=== PATIENT | male | born 1990 | race African-American/Black ===

== ENCOUNTER 2016-10-21 10:41 | Emergency (ER) | payer SELFPAY ==
[2016-10-21] MEDS ORDERED: ACETAMINOPHEN 325 MG TABLET PO ONE (10:57)
[2016-10-21] MEDS ORDERED: NORMAL SALINE 1000 ML 1,000 ML IV ONE ×2 (11:01→11:44)
--- NOTE | 2016-10-21 11:03 | ER Document Report ---
ED Medical Screen (RME) - General Chief Complaint: Bodyaches Stated Complaint: FEVER,STOMACH PAIN Mode of Arrival: Ambulatory Information source: Patient Notes: 26 y/o M presents to ED c/o generalized body aches, cough, sore throat, and intermittent fever over the last 2 weeks. Denies chest pain or sob. I have greeted and performed a rapid initial assessment of this patient. A comprehensive ED assessment and evaluation of the patient, analysis of test results and completion of the medical decision making process will be conducted by additional ED providers. TRAVEL OUTSIDE OF THE [place] IN LAST 30 DAYS: No - Related Data Allergies/Adverse Reactions: No Known Allergies Allergy (Unverified 10/21/16 10:54) Past Medical History - Social History Chew tobacco use (# tins/day): No Frequency of alcohol use: Social Drug Abuse: None Renal/ Medical History: Denies: Hx Peritoneal Dialysis Physical Exam - Vital signs Vitals: Temp Pulse Resp BP Pulse Ox 100.6 F H 134 H 18 129/86 H 97 10/21/16 10:53 10/21/16 10:53 10/21/16 10:53 10/21/16 10:53 10/21/16 10:53 - General General appearance: Alert In distress: None - Respiratory Respiratory status: No respiratory distress Breath sounds: Normal - Cardiovascular Rhythm: Regular, Tachycardia Pulses: Normal: Radial Course - Vital Signs Vital signs: Temp Pulse Resp BP Pulse Ox 100.6 F H 134 H 18 129/86 H 100 10/21/16 10:57 10/21/16 10:57 10/21/16 10:57 10/21/16 10:57 10/21/16 10:57
--- NOTE | 2016-10-21 11:44 | ER Document Report ---
ED General Pain - General Chief Complaint: Bodyaches Stated Complaint: FEVER,STOMACH PAIN Time seen by provider: 11:44 Mode of Arrival: Ambulatory Information source: Patient Notes: 26 yo male c/o being sick for several weeks with bodyaches, intermittent fevers , just not feeling right. Some stomache, sore throat, mild cough. No vomiting or diarrhea. No dysuria. No rash. No abscess. NO groin or perineal pain. NO rectal pain. No travel outside [place]. No tickbite. TRAVEL OUTSIDE OF THE [place] IN LAST 30 DAYS: No - Related Data Allergies/Adverse Reactions: No Known Allergies Allergy (Unverified 10/21/16 10:54) Past Medical History - General Information source: Patient - Social History Smoking Status: Current Every Day Smoker Chew tobacco use (# tins/day): No Frequency of alcohol use: Social Drug Abuse: None Lives with: Family Family History: Reviewed & Not Pertinent Patient has suicidal ideation: No Patient has homicidal ideation: No - Medical History Medical History: Negative Renal/ Medical History: Denies: Hx Peritoneal Dialysis Surgical Hx: Negative Review of Systems - Review of Systems Constitutional: See HPI EENT: No symptoms reported Cardiovascular: No symptoms reported Respiratory: No symptoms reported Gastrointestinal: No symptoms reported Genitourinary: No symptoms reported Male Genitourinary: No symptoms reported Musculoskeletal: No symptoms reported Skin: No symptoms reported Hematologic/Lymphatic: No symptoms reported Neurological/Psychological: No symptoms reported Physical Exam - Vital signs Vitals: Temp Pulse Resp BP Pulse Ox 100.6 F H 134 H 18 129/86 H 97 10/21/16 10:53 10/21/16 10:53 10/21/16 10:53 10/21/16 10:53 10/21/16 10:53 Interpretation: Normal - General General appearance: Appears well, Alert - HEENT Head: Normocephalic, Atraumatic Eyes: Normal Conjunctiva: Normal Pupils: PERRL Tympanic membrane: Normal Mouth/Lips: Normal Pharynx: Normal Neck: Supple. No: Lymphadenopathy - Respiratory Respiratory status: No respiratory distress Chest status: Nontender Breath sounds: Normal Chest palpation: Normal - Cardiovascular Rhythm: Regular Heart sounds: Normal auscultation Murmur: No - Abdominal Inspection: Normal Distension: No distension Bowel sounds: Normal Tenderness: Nontender. No: Tender Organomegaly: No organomegaly. No: Hepatomegaly, Splenomegaly - Back Back: Normal, Nontender. No: CVA tenderness - Extremities General upper extremity: Normal inspection, Nontender, Normal color, Normal ROM , Normal temperature General lower extremity: Normal inspection, Nontender, Normal color, Normal ROM , Normal temperature, Normal weight bearing. No: David's sign - Neurological Neuro grossly intact: Yes Cognition: Normal Orientation: AAOx4 Marjan Coma Scale Eye Opening: Spontaneous Marjan Coma Scale Verbal: Oriented [place] Coma Scale Motor: Obeys Commands [place] Coma Scale Total: 15 Speech: Normal Motor strength normal: LUE, RUE, LLE, RLE Sensory: Normal - Psychological Associated symptoms: Normal affect, Normal mood - Skin Skin Temperature: Warm Skin Moisture: Dry Skin Color: Normal Skin irregularity: negative: Rash Course - Re-evaluation Re-evalutation: 10/21/16 12:[address] george for further workup and dispo. Patient is willing to have HIV run since last testing are negative so far. He is bisexual and had receptive anal intercourse about 2 months ago and unknown if the condom was used. Most of the times he uses condoms when he has intercourse with males and females. 10/21/16 13:11 vitals are stable at this time. 10/21/16 15:49 HIV is negative, pt called back for the result. - Vital Signs Vital signs: Temp Pulse Resp BP Pulse Ox 98.2 F 97 18 144/74 H 98 10/21/16 13:11 10/21/16 13:11 10/21/16 13:11 10/21/16 13:11 10/21/16 13:11 - Laboratory Result Diagrams: 10/21/16 11:30 10/21/16 11:30 Laboratory results interpreted by me: 10/21/16 10/21/16 10/21/16 11:30 11:30 11:30 WBC 12.7 H RBC 3.88 L Hgb 12.3 L Hct 36.5 L Seg Neuts % (Manual) 35 L Abs Lymphs (Manual) 7.2 H Abs Basophils (Manual) 0.3 H VBG pH 7.43 H AST 115 H ALT 100 H Urine Ketones Urine Urobilinogen 10/21/16 11:30 WBC RBC Hgb Hct Seg Neuts % (Manual) Abs Lymphs (Manual) Abs Basophils (Manual) VBG pH AST ALT Urine Ketones TRACE H Urine Urobilinogen 4.0 H Discharge - Discharge Clinical Impression: Myalgia Fever Qualifiers: Fever type: unspecified Qualified Code(s): R50.9 - Fever, unspecified Condition: Good Disposition: HOME, SELF-CARE Instructions: Fever ([facility]), Acetaminophen, Myalagia (Muscle Pain) ([facility]) Additional Instructions: Call me back at [phone] for the rest of the test results. They should be back in 2 hours. Return to the emergency room any worsening symptoms Tylenol for any fever Please complete the patient satisfaction survey if you get one, and return it.. If you do not receive a survey, then you can go to the [facility] website, [email or web address] and place your comments about your very good care. Thank you very much. It was a pleasure being your medical provider today.
[2016-10-21 12:07] LABS: APPEARANCE,URINE CLEAR; BILIRUBIN,URINE NEGATIVE (NEGATIVE); GLUCOSE, URINE NEGATIVE (NEGATIVE); KETONES,URINE TRACE mg/dL (NEGATIVE); LEUKOCYTE ESTERASE,URINE NEGATIVE (NEGATIVE); NITRITE,URINE NEGATIVE (NEGATIVE); PROTEIN,URINE NEGATIVE (NEGATIVE); URINE SPECIFIC GRAVITY 1.018
[2016-10-21 12:08] LABS: PROTHROMBIN TIME 13.7 SEC (11.4-15.4)
[2016-10-21 12:11] LABS: HEMATOCRIT 36.5 % (37.9-51.0); HEMOGLOBIN 12.3 g/dL (13.5-17.0); HGB HCT DIFFERENCE 0.4; MEAN CORPUSCULAR HEMOGLOBIN 31.7 pg (27.0-33.4); MEAN CORPUSCULAR HGB CONC 33.7 g/dL (32.0-36.0); MEAN CORPUSCULAR VOLUME 94 fl (80-97); RED BLOOD COUNT 3.88 10^6/uL (4.35-5.55); RED CELL DISTRIBUTION WIDTH 11.8 % (11.5-14.0); WHITE BLOOD COUNT 12.7 10^3/uL (4.0-10.5)
[2016-10-21 12:15] LABS: VENOUS BLOOD BASE EXCESS 3.7 mmol/L; VENOUS BLOOD HCO3 28.6 mmol/L (20-32); VENOUS BLOOD PCO2 44.1 mmHg (35-63); VENOUS BLOOD PH 7.43 (7.30-7.42)
[2016-10-21 12:17] LABS: ALANINE AMINOTRANSFERASE 100 U/L (21-72); ALBUMIN 3.9 g/dL (3.5-5.0); ALKALINE PHOSPHATASE 72 U/L (38-126); ANION GAP 11 (5-19); ASPARTATE AMINO TRANSFERASE 115 U/L (17-59); BILIRUBIN,TOTAL 0.8 mg/dL (0.2-1.3); BLOOD UREA NITROGEN 11 mg/dL (7-20); CALCIUM 9.4 mg/dL (8.4-10.2); CARBON DIOXIDE 26 mmol/L (22-30); CHLORIDE 102 mmol/L (98-107); CREATININE RESULT 1.01 mg/dL (0.52-1.25); GLUCOSE 98 mg/dL (75-110); POTASSIUM 4.2 mmol/L (3.6-5.0); SODIUM 139.2 mmol/L (137-145); TOTAL PROTEIN 7.6 g/dL (6.3-8.2)
[2016-10-21 12:35] LABS: BASOPHILS % (MANUAL) 2 % (0-2); EOSINOPHILS % (MANUAL) 1 % (0-6); LYMPHOCYTES % (MANUAL) 23 % (13-45); TOTAL CELLS COUNTED 100
[2016-10-21 12:36] LABS: RBC MORPHOLOGY COMMENT NORMO-CYTIC/CHROMIC; TOXIC GRANULATION 1+
[2016-10-21 13:14] VITALS: BP 144/74
[2016-10-21 13:47] LABS: ADD HIVPANEL? NO; HIV (1 AND 2) ANTIBODY NEGATIVE (NEGATIVE)
== END 2016-10-21 13:18 | disposition home or self-care (01) ==
LOC: ER 10:41
DX: M79.1 Myalgia (principal); R74.8 Abnormal levels of other serum enzymes; R50.9 Fever, unspecified; R10.84 Generalized abdominal pain; F17.200 Nicotine dependence, unspecified, uncomplicated
CPT/HCPCS: 99283; 96360; 36415; 87040; 87070; 87086; 87880; 82962; 85025; 85610; 87077; 86308; 80053; 81001; 86701; 87186; 82803; 83605; 87804; 71020; J7030; 80074